=== PATIENT | male | born 1965 | race Caucasian/White ===

== ENCOUNTER 2016-10-14 21:03 | Inpatient (IN) | payer BC, OTHER ==
--- NOTE | ~2016-10-14 | DS ---
Discharge Summary [id number] [place]. [address] NAME: PREM FRANKEL : 69 STATUS : DIS IN PAT#: [id number] AGE: 51 ADM/REG DATE : 10/14/16 MR#: [id number] REPORT SERV DATE: 10/18/16 DICTATED BY: ÓSCAR KOHLER DATE: 10/17/16 REPORT STATUS : Draft TRANSCRIBED BY: LEONOR DATE: 10/17/16 ADMISSION DATE: 10/14/2016 DISCHARGE DATE: 10/17/2016 DISCHARGE DIAGNOSES: 1. Acute on chronic chest wall pain. 2. History of mediastinitis with chronic sternal wound infection. 3. History of coronary artery disease, status post CABG with redo. 4. History of systolic congestive heart failure. 5. Chronic obstructive pulmonary disease with trach. 6. Type 2 diabetes. 7. Obesity. 8. Hypertension. CONSULTANTS: Cardiothoracic Surgery, Dr. Gutierrez, and Infectious Disease, Dr. Aris Reyes. FOLLOWUP: The patient should follow up with his primary care physician in one to two weeks and to follow up with Dr. Figueroa in one to two weeks. Also, the patient should follow up with his surgeon, Dr. Lewis Camarena at [facility] in two weeks per Dr. Gutierrez' recommendation. DISCHARGE MEDICATIONS: Amlodipine 5 mg p.o. daily, aspirin 81 mg p.o. daily, benazepril 20 mg p.o. b.i.d., Tegretol 200 mg p.o. q.h.s., Coreg 25 mg p.o. b.i.d., Plavix 75 mg p.o. daily, ferrous sulfate 300 mg p.o. with meals, level three subcutaneous sliding scale insulin, Protonix 40 mg p.o. b.i.d., Ranexa 1000 mg p.o. b.i.d., Zocor 20 mg p.o. q.h.s., Klonopin 1 mg p.o. four times a day, hydralazine 25 mg p.o. t.i.d., home dose of vancomycin 2 g IV q.12 hours to stop on 10/28/2016, Levemir 90 units subcu b.i.d., Biofreeze p.r.n. HOSPITAL COURSE: Please see H and P dictated by Dr. Fitz Worrell. This is a 51 years old male with a past medical history of coronary artery disease, status post CABG with history of chronic mediastinitis, sternal infection status post CABG by Dr. Mccartney, and has seen several specialists as an outpatient for second opinion for his ongoing chronic pain and also for his chronic postop infection being on IV vancomycin, currently being treated by Infectious Disease Dr. Figueroa as an outpatient. Also, has seen specialist, Dr. Lewis Camarena, who is cardiothoracic surgeon, who currently at this time is his primary cardiothoracic surgeon, and recently had surgery, 07/2016. The patient was transferred from [facility] for second opinion from a cardiothoracic surgeon and Infectious Disease per patient and family request. The patient was seen by Dr. Gutierrez, cardiothoracic surgeon, and Infectious Disease, Dr. Aris Reyes. Dr. Gutierrez does not recommended any surgery by himself, but recommends for the patient to follow up with his now primary cardiothoracic surgeon, Dr. Lewis Camarena and also, the patient was seen by Infectious Disease specialist, who recommends for the patient to complete his IV vancomycin as previously instructed by Dr. Figueroa, for which the patient should complete his treatment on 10/28/2016. Pain management was given while in the hospital. He did have a blood culture that at the time of discharge was no growth to date. All recommendations were explained to the patient and family member at bedside and the patient was discharged back to home to continue with home health for his IV Discharge Summary [address] [address] NAME: PREM FRANKEL : 69 STATUS : DIS IN PAT#: [id number] AGE: 51 ADM/REG DATE : 10/14/16 MR#: [id number] REPORT SERV DATE: 10/18/16 DICTATED BY: ÓSCAR KOHLER DATE: 10/17/16 REPORT STATUS : Draft TRANSCRIBED BY: LEONOR DATE: 10/17/16 antibiotics and to follow up with his cardiothoracic surgeon, Dr. Camarena, and Infectious Disease, Dr. Figueroa, as an outpatient. Above specialists recommended for the patient to follow up as an outpatient and have no further recommendations at this time. BRYAN/LEONOR Óscar Kohler M.D. / [id number] CC: Ernestina Marks M.D. Larry Shears, MD
--- NOTE | ~2016-10-14 | HP ---
History And Physical [facility] [address] [place]. [address] NAME: PREM FRANKEL : 69 STATUS : ADM IN [facility]#: [id number] AGE: 51 ADM/REG DATE : 10/14/16 MR#: [id number] REPORT SERV DATE: 10/15/16 DICTATED BY: ATUL ANDERSON DATE: 10/14/16 REPORT STATUS : Draft TRANSCRIBED BY: LEONOR DATE: 10/14/16 DATE OF ADMISSION: 10/14/2016 CHIEF COMPLAINT: Continued chest wall pain, on chronic antibiotics, due to sternal infection with MRSA, transferred from [facility] for second opinion for CT surgery and infectious disease per patient and family request, as patient and family requesting [facility] transfer. Of note, prior CT surgeon, has seen Dr. Mccartney in the past. Declining repeat evaluation by Dr. Mccartney. Currently sees Dr. Leong, who is also requesting to have second opinion per patient. For additional CT surgery evaluation, sees Infectious Disease at [place] and also requesting ID second opinion. 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 Berg in [place], has [employer]. HISTORY OF PRESENT ILLNESS: The patient is a 51-year-old male with prior smoking history, but quit three years ago. Has had a complex medical history since. Has had coronary artery disease, status post CABG. Subsequently, has had sternal wall difficulties with pain and infections, currently on vancomycin IV for approximately eight weeks at this point. However, the patient reports that sternal wall pain has been constantly getting worse with more discomfort, although he does not have any erythema, fevers, or chills. Still has fair difficulty with sternal wall pain. The patient is having difficulty with swallowing, which he reports due to his trach that he had, that has been intermittent. Pain has been kind of pressure type, reproducible at times with deep wall pain. However, of concern, the patient reports that this is similar to his pain that he has had prior to his heart surgery. The patient has had decreased p.o. intake over the last few days. Currently, son has brought the patient double hamburger from outside. The patient only has eaten approximately a third of this. There are no improving symptoms of pain. Symptoms are worsened with palpation, but this essentially becomes continuous. The patient has also had mild nausea and decreased p.o. intake with shortness of breath at times. The patient usually has trach that is on. REVIEW OF SYSTEMS: Additionally, 10-point review of systems negative except that noted in HPI. PAST MEDICAL HISTORY: Coronary artery disease with ischemic cardiomyopathy, ejection fraction [address] Trujillo in the past, Dr. Mcknight, and Dr. Berg. Has had extensive cardiac nuclear stress test within the last year, which has been negative. Additionally, he has hypertension and diabetes. Reports to have signs for medical noncompliance, tracheostomy tube with COPD history, obesity. SURGICAL HISTORY: Has had CABG and redo, sternal wall infections multiple times, tracheostomy tube. SOCIAL HISTORY: Lives with son. Quit smoking three years ago. No alcohol or illicits. FAMILY HISTORY: Multiple strokes and GA. History And Physical [address] [address] NAME: PREM FRANKEL : 69 STATUS : ADM IN [facility]#: [id number] AGE: 51 ADM/REG DATE : 10/14/16 MR#: [id number] REPORT SERV DATE: 10/15/16 DICTATED BY: ATUL ANDERSON DATE: 10/14/16 REPORT STATUS : Draft TRANSCRIBED BY: LEONOR DATE: 10/14/16 ALLERGIES: PHENERGAN AND BUSPAR. HOME MEDICATIONS: Amlodipine, aspirin, benazepril, Tegretol, Coreg, Klonopin, Plavix, iron sulfate, aspart, 110 units of Levemir, Protonix, Ranexa, Zocor vancomycin, and Biofreeze. PHYSICAL EXAMINATION: VITAL SIGNS: Blood pressure 191/99, O2 saturations 93% on 2 L, temperature 98.9, pulse 97, O2 saturations . GENERAL: Obese, appears elderly than stated age. NECK: Tracheostomy. EYES: No scleral icterus. ENT: Nares patent. Tongue midline. Large tongue. CHEST: Equal chest expansion. Mildly increased AP diameter. Chest wall does have old surgical sites. No oozing or erythema, but reproducible discomfort. RESPIRATORY: Good air flow in anterior and posterior lung eli. CV: Tachycardic, but no rubs or gallops. Bilateral edema. ABDOMEN: Does have central obesity. Negative fluid wave. No gross hepatomegaly. EXTREMITIES: Moves all extremities x4. NEURO: Alert and oriented. Symmetrical rail bonder strength bilaterally. SKIN: Warm and dry. LYMPH: Does have trace bilateral pedal edema. HEME: No bleeding or bruising. PSYCH: Appropriate mood and affect. LABORATORY DATA: Labs from outside facility, WBC 6.2, H and H 11.2 and 35.6, platelets 258. BMP; sodium 136, potassium 4.1, chloride 99, bicarb 28, BUN and creatinine 8 and 0.78, glucose 451, calcium 8.7, AST and ALT 13 and 12, alkaline phosphatase 144, troponin negative. CK-MB 14, calcium 9, BNP 68. Chest x-ray, clear of acute infiltrates. CTA that was performed with contrast, no evidence of PE. Prior CABG. Continues to be soft tissue fullness and destructive changes about the mid to distal sternum, similar in appearance. Lungs appear to be clear. ASSESSMENT AND PLAN: 1. Recurrent chest wall pain. 2. Diabetes type 2. 3. Trach with chronic obstructive pulmonary disease history. 4. Coronary artery disease. 5. Obesity. 6. Hypertension. 7. Congestive heart failure. PLAN: 1. For recurrent chest wall pain with MRSA infection, the patient was told and is currently requesting second opinion from CT surgery and ID at [facility] per patient and family. Although they have seen Dr. Mccartney in the past, requesting alternative CT surgeon. Currently sees Dr. Leong at [place] and requesting additional opinion here due to continued pain, discomfort, and eight weeks of antibiotics. We will have History And Physical [address] [address] NAME: PREM FRANKEL : 69 STATUS : ADM IN PAT#: [id number] AGE: 51 ADM/REG DATE : 10/14/16 MR#: [id number] REPORT SERV DATE: 10/15/16 DICTATED BY: ATUL ANDERSON DATE: 10/14/16 REPORT STATUS : Draft TRANSCRIBED BY: MODL DATE: 10/14/16 additional consultation, CT in hand at bedside from [facility] and requested upload of CT from PACS at [facility] that was done with contrast on the day of transfer. 2. Diabetes type 2, Levemir, on extremely high doses of Levemir. We will monitor closely and sliding scale insulin. 3. Trach with COPD. DuoNebs, O2. Baseline reports not requiring oxygen, but currently in the acute setting, has required at least 2 L of O2. 4. Coronary artery disease with prior CABG, beta oksana, Plavix, aspirin, statin, ANAI inhibitor. 5. Obesity. Has been actively trying to lose weight. 6. Hypertension. Continue home medications p.r.n. 7. CHF. Does have Life Vest. Sees multiple different cardiologists. Unfortunately, the patient reports that he has been told to have multiple second opinions. Has been seeing Dr. Trujillo, Dr. Mcknight, and currently Dr. Berg, who has given the patient Life Vest. Is currently on ANAI inhibitor, beta oksana, statin, and aspirin. Not hypovolemic. Last BNP at outside facility 68. I will monitor I's and O's. DISPOSITION: Pending ID and CT Surgery opinion. We will continue IV vancomycin with pharmacy adjusting dose, as the patient is currently on this b.i.d. and try to obtain records. DDN/MODL Atul Anderson MD / [id number] CC: Carolyn Mullen M.D.
--- NOTE | ~2016-10-14 | CN ---
Consultation Report [facility] [address] [place]. [address] NAME: PREM FRANKEL : 69 STATUS : ADM IN PAT#: [id number] AGE: 51 ADM/REG DATE : 10/14/16 MR#: [id number] REPORT SERV DATE: 10/16/16 DICTATED BY: JACINTO REYES DATE: 10/16/16 REPORT STATUS : Draft TRANSCRIBED BY: MODL DATE: 10/16/16 INFECTIOUS DISEASE CONSULTATION DATE OF CONSULTATION: 10/16/2016 REASON FOR CONSULTATION: History of sternal wound infection. HISTORY OF PRESENT ILLNESS: This is a 51-year-old man with uncontrolled diabetes, obesity, coronary artery disease, congestive heart failure, and COPD. He had coronary artery bypass surgery in 04/[address] Mccartney at [facility]. He is not a great historian. At some point, he did develop a sternal wound infection and had further surgeries, which included an omental flap. I also see from the records here on [facility] that he had MRSA bacteremia in 10/2014 while at [facility]. I do not know the details of that. More recently, he has been seen at [facility] and was felt apparently to have possible persistent or recurrent sternal wound infection and on 08/30, underwent surgery at [facility] by Dr. Camarena. That operative note is reviewed and describes a free space just lateral to where the omental flap was positioned, and cultures from that area were obtained, which apparently returned negative. The patient was seen by Dr. Figueroa in ID consultation in August and he notes that cultures from an outside hospital in July had grown MRSA and Enterococcus faecalis, but details are not entirely clear. The patient left [facility] with plans for eight weeks of IV vancomycin from the time of 08/30 surgery, and the patient has an appointment to see Dr. Figueroa on 10/28. The patient presented to [facility] Emergency Department on 10/14, complaining of chest pain and was transferred here for further evaluation and apparently desired a second surgical opinion from the CT surgeon here. When I talked to the patient today, his chief complaint is persistent nausea and some episodic headache and just "a sick feeling." He thinks this very well may be due to vancomycin. He says his pain here in the hospital is well controlled. He denies any fevers, chills, or sweats. He denies any abdominal pain or diarrhea. PAST MEDICAL HISTORY: As outlined above. His diabetes has always been uncontrolled with hemoglobin A1cs in the double digits, and fingerstick glucoses here all above 300. He does have tracheostomy. Other surgeries have included bilateral total knee and total shoulder arthroplasties. ALLERGIES: HE CANNOT TOLERATE PHENERGAN OR BUSPIRONE. MEDICATIONS: At the time of transfer in addition to the vancomycin include the Norvasc, aspirin, Lotensin, Tegretol, Coreg, Klonopin, Plavix, iron sulfate, insulin, Protonix, Ranexa, Zocor. SOCIAL HISTORY: Past smoker, quit three years ago. Nondrinker. Lives with his son. FAMILY HISTORY: Notable for coronary artery disease and strokes. Consultation Report [address] [place]. [address] NAME: PREM FRANKEL : 69 STATUS : ADM IN [facility]#: [id number] AGE: 51 ADM/REG DATE : 10/14/16 MR#: [id number] REPORT SERV DATE: 10/16/16 DICTATED BY: JACINTO REYES DATE: 10/16/16 REPORT STATUS : Draft TRANSCRIBED BY: LEONOR DATE: 10/16/16 REVIEW OF SYSTEMS: As outlined above, otherwise negative. PHYSICAL EXAMINATION: VITAL SIGNS: The patient weighs 157 kg. He is afebrile. Blood pressure 155/77, pulse 78, respiratory rate 16. GENERAL: He is alert, in no acute distress. HEAD AND NECK: Notable for the tracheostomy, otherwise unremarkable. LUNGS: Clear to auscultation. CARDIAC: Regular rate and rhythm without murmur, gallop, or rub. CHEST: Shows a well-healed sternal incision. No erythema and no significant tenderness to palpation. ABDOMEN: Obese and soft. EXTREMITIES: Show a PICC line covered by dressing. SKIN: Without rash. LABORATORY STUDIES: White blood cell count 6.7, hemoglobin 11, platelets 280. Creatinine 0.92, albumin 3.2, alkaline phosphatase 145. Glucose is as mentioned. Blood cultures here are negative to date. Chest x-ray shows no acute findings. IMPRESSION: This patient has a history of sternal wound infections and surgical debridements, including an omental flap since his bypass surgery back in 2013. Most recently, he had further debridement at [facility] on 08/30 because of concern about the possibility of persistent infection. Apparently, cultures were negative and he was placed on an eight-week course of IV vancomycin, due to end on 10/28. The patient's chief complaint to me is his concern that his episodic nausea and headache might be due to the vancomycin. Certainly, this is possible, but overall I doubt it. He has certainly other factors that may be playing a role, especially with regard to his nausea and with his out-of control diabetes. The sternal area looks fine on exam today, and I do not see signs of active ongoing infection. PLAN: The patient is agreeable to continuing his vancomycin through 10/28. I will let Dr. Figueroa know of his admission. The patient will keep his followup on that date. DOM/LEONOR Jacinto Reyes M.D. / [id number] CC: Carolyn Mullen M.D. Consultation Report [address] [place]. [address] NAME: PREM FRANKEL : 69 STATUS : ADM IN [facility]#: [id number] AGE: 51 ADM/REG DATE : 10/14/16 MR#: [id number] REPORT SERV DATE: 10/16/16 DICTATED BY: JACINTO REYES DATE: 10/16/16 REPORT STATUS : Draft TRANSCRIBED BY: LEONOR DATE: 10/16/16 Ramiro Figueroa M.D.
--- NOTE | ~2016-10-14 | CN ---
Consultation Report [facility] [address] [place]. [address] NAME: PREM FRANKEL : 69 STATUS : ADM IN PAT#: [id number] AGE: 51 ADM/REG DATE : 10/14/16 MR#: [id number] REPORT SERV DATE: 10/17/16 DICTATED BY: DMITRY LLAMAS DATE: 10/16/16 REPORT STATUS : Draft TRANSCRIBED BY: MODJesi DATE: 10/16/16 CONSULTATION DATE OF CONSULTATION: 10/15/2016 REASON FOR CONSULTATION: Recurrent chest wall pain with a recent MRSA infection and mediastinitis. HISTORY OF PRESENT ILLNESS: This is a 51-year-old male who is known to our practice. He underwent open heart surgery by Dr. Holden Mccartney several years ago at [facility] and left AMA and did not want to follow up with Dr. Mccartney. He has had ongoing sternal pain and was recently admitted to [facility] with mediastinitis and underwent I and D of his wound with flap for mediastinitis by Dr. Lewis Leong. He did have positive MRSA cultures at that time. The patient was eventually discharged there and re-presented two to [facility] with complaints of chest pain. He has continued on IV antibiotics under the care of ID. He was transferred down here for evaluation of mediastinitis and continued on antibiotics, admitted by the hospitalist. CT Surgery was consulted for evaluation of his chest wall pain. He has a chronic tracheostomy that he uses intermittently. Upon admission, his blood pressure was elevated. He is maintaining O2 sats on 2 L and afebrile with normal white count. PAST MEDICAL HISTORY: Coronary artery disease with ischemic cardiomyopathy with ejection fraction around 20% the patient 30%, medical noncompliance, advanced COPD with tracheostomy, and obesity. PAST SURGICAL HISTORY: CAB in the past by Dr. Holden Mccartney at [facility]. He also had a redo sternal wall infections most recently operated on by Dr. Lewis Leong with mediastinal flap on 09/10/2016 at [facility]. He also has had a tracheostomy tube. SOCIAL HISTORY: He lives with the son. Quit smoking three years ago. Denies any history of alcohol abuse or use of illicit drugs. FAMILY HISTORY: Positive for coronary artery disease and CVAs in the past. ALLERGIES: ALLERGIC TO PHENERGAN AND BUSPAR. HOME MEDICATIONS: Amlodipine 5 mg p.o. every morning, aspirin 81 mg p.o. daily, benazepril 20 mg p.o. twice a day, Tegretol 200 mg p.o. bedtime, carvedilol 25 mg p.o. twice a day, Klonopin 1 mg p.o. four times a day, Plavix 75 mg every morning, NovoLog insulin 25 units subcu before meals, iron sulfate 325 mg p.o. with meals, NovoLog insulin sliding scale, Levemir 35 units twice a day, Protonix 40 mg p.o. twice a day, Ranexa 1000 mg p.o. twice a day, simvastatin 20 mg p.o. at bedtime, vancomycin per ID, and Biofreeze as directed. REVIEW OF SYSTEMS: A 10-point review of systems was obtained and is negative other than the HPI. Consultation Report [address] [place]. [address] NAME: PREM FRANKEL : 69 STATUS : ADM IN [facility]#: [id number] AGE: 51 ADM/REG DATE : 10/14/16 MR#: [id number] REPORT SERV DATE: 10/17/16 DICTATED BY: DMITRY LLAMAS DATE: 10/16/16 REPORT STATUS : Draft TRANSCRIBED BY: LEONOR DATE: 10/16/16 PHYSICAL EXAMINATION: VITAL SIGNS: From today, temperature 96.7, heart rate 78, blood pressure 155/77, respiratory rate 20, and O2 saturation 96% on room air. GENERAL: Obese, ill-appearing male, in no acute distress. HEENT: Head is normocephalic and atraumatic. Sclerae clear. NECK: With tracheostomy. CHEST: Clear to auscultation with diminished bases. CARDIAC: S1 and S2. No murmurs, rubs, or gallops. ABDOMEN: Obese, nontender. Active bowel sounds. EXTREMITIES: Free of cyanosis, clubbing, or edema. LABORATORY DATA: CBC on 10/15/2016 showed white blood cell count 6.7, hemoglobin 11, hematocrit 35.2, and platelets 280. Labs from today: Sodium 139, potassium 4.7, chloride 98, bicarbonate 33, BUN 10, creatinine 0.9, and glucose 337. Blood cultures at 24 hours are pending. ASSESSMENT AND PLAN: This is a 51-year-old male with a history of coronary artery disease previously operated by Dr. Holden Mccartney who did a coronary artery bypass grafting at [facility] several years ago. At that time, he left AMA and did not want to continue to follow up with Dr. Mccartney. He has had ongoing chest pain and was at [facility] in 08/2016 with what appears to be mediastinitis, underwent I and D of his sternal wound with sternal flap for mediastinitis with positive methicillin-resistant staphylococcus aureus in cultures at that time. This was done by Dr. Lewis Leong. The patient presented back to [facility] recently with chest discomfort. He is continued on IV antibiotics. The patient was transferred here for second opinion. He is evaluated by Dr. Dmitry Llamas currently. Repeat blood cultures are pending. He is to continue to be followed by ID. He was waiting for the cultures. We have reviewed medical records from [place] and requesting a CT scan from [facility], currently it is pending and Dr. Dmitry Llamas said that he does not need to undergo surgical treatment here as a recommendation that he continue to follow up with Dr. Lewis Leong. DICTATED BY: MANJEET Balderas/LEONOR Dmitry Llamas MD / [id number] CC: Carolyn Mullen M.D.
[~2016-10-14 21:03] MED LIST: *UNABLE1; ABILIFY10 PO; ADVAIR250 INH; ASA5GR PO; ASABAYER PO; ASAEC PO; ATV1 PO; CYMBALTA30 PO; CYMBALTA60 PO; FLUPHENAZINE5 MG OR; FLUPHENAZINE5 MG PO; GLUCPH PO; IBU800 PO; IMDUR60 PO; ISOSORBIDE MONO60 M1 PO; KLONO1 PO; KLOR-CON M2020 MEQ PO; KLOR-CON20 MEQ PO; L20 PO; L40 PO; LANTUS SC; LEVEMIR SC; LOP25 PO; LOTE20 PO; LYRICA50 PO; MONODOX100 MG PO; MSCONT15 PO; NITROSTAT0.4 MG SL; NORV25 PO; NOVOLOG SC; NTG150 SL; PERCOCET1 TA4; PERCOCET1 TA4 PO; PERCOCET1 TA5 PO; PLAVIX PO; PRILO PO; PROTONIX PO; PROZAC40 MG PO; ROXICODONE15 MG PO; TOPAMAX100 PO; TOPAMAX200 MG PO; TOPXL50 PO; TRAZ100 PO; VASOTEC10 PO; ZOCOR20 PO
[2016-10-14] MEDS ORDERED: VANCOMYCIN IV IV (23:17)
[2016-10-14] MEDS ORDERED: LEVEMIR SC (23:19)
[2016-10-14] MEDS ORDERED: NOVOLOG SC ×2 (23:19)
[2016-10-14] MEDS ORDERED: RANEXA1000 MG PO (23:20)
[2016-10-14] MEDS ORDERED: ASAB PO (23:20)
[2016-10-14] MEDS ORDERED: PLAVIX PO (23:21)
[2016-10-14] MEDS ORDERED: FERROUS SULF325 M1 PO (23:21)
[2016-10-14] MEDS ORDERED: ZOCOR20 PO (23:22)
[2016-10-14] MEDS ORDERED: COREG25 PO (23:23)
[2016-10-14] MEDS ORDERED: NORV5 PO (23:24)
[2016-10-14] MEDS ORDERED: TEG200 PO (23:25)
[2016-10-14] MEDS ORDERED: KLONO1 PO (23:26)
[2016-10-14] MEDS ORDERED: BIOFREEZE TOP (23:27)
[2016-10-14] MEDS ORDERED: PROTONIX PO (23:27)
[2016-10-14] MEDS ORDERED: LOTE20 PO (23:36)
[2016-10-15 01:38] LABS: BASOPHILS 0.9 %; BASOPHILS ABSOLUTE 0.06 10/3/uL (0.0-0.16); HEMATOCRIT 35.2 % (40.0-51.0); IMMATURE GRANULOCYTES 0.1 %; IMMATURE GRANULOCYTES ABSOLUTE 0.01 10/3/uL (0.0-0.11); LYMPHOCYTES 41.7 %; MANUAL DIFF NO %; MEAN CORPUS HGB CONC 31.3 g/dL (32.0-36.0); MEAN CORPUSCULAR HEMOGLOB 24.3 pg (26.0-34.0); MEAN CORPUSCULAR VOLUME 77.9 fL (80-100); MEAN PLATELET VOLUME 9.2 fL (9.2-13.0); MONOCYTES 11.9 %; NEUTROPHILS 42.4 %; NEUTROPHILS ABSOLUTE 2.84 10/3/uL (2.02-8.40); PLATELET COUNT 280 10/3/uL (150-400); RBC DISTRIBUTION WIDTH 17.3 % (12.0-16.0); RED CELL COUNT 4.52 10/6/uL (4.7-6.1); WHITE BLOOD CELLS 6.7 10/3/uL (4.5-10.5)
[2016-10-15 02:00] LABS: A/G RATIO 0.9 (0.7-1.9); ALBUMIN 3.2 G/DL (3.5-5.0); ALKALINE PHOSPHATASE 145 U/L (45-117); BUN (BLOOD UREA NITROGEN) 6 MG/DL (6-23); C-REACTIVE PROTEIN 33.4 MG/L (<8.0); CHLORIDE, SERUM 101 MMOL/L (96-112); CO2 (CARBON DIOXIDE) 32 MMOL/L (24-34); CREATININE 0.97 MG/DL (0.70-1.30); GFR AFRICAN AMERICAN 106 ML/MIN (>=60); GFR NON AFRICAN AMERICAN 91 ML/MIN (>=60); GLOBULIN 3.7 G/DL (2.5-4.1); GLUCOSE, SERUM 366 MG/DL (60-99); POTASSIUM, SERUM 4.1 MMOL/L (3.5-5.3); SGOT(AST) 9 U/L (5-40); SGPT(ALT) 19 U/L (5-65); SODIUM, SERUM 139 MMOL/L (135-148); TOTAL BILIRUBIN 0.2 MG/DL (0-1.2); TOTAL PROTEIN 6.9 G/DL (6.0-8.5); TROPONIN I 0.02 NG/ML (<0.05)
[2016-10-15 03:15] LABS: SED RATE 25 MM/HR (0-15)
[2016-10-15 04:16] LABS: PROCALCITONIN <0.05 ng/mL (<0.5)
[2016-10-15 10:09] LABS: INTERNATIONAL NORMAL RATI 1.1 UNITS (-); PROTIME (NOT ORD) 13.6 SEC (12.0-14.5)
[2016-10-15 10:25] LABS: CK-MB 8.4 NG/ML
[2016-10-15 10:27] LABS: CKMB INDEX (NOT ORD) 5.5
[2016-10-15 14:58] LABS: CK-MB 8.7 NG/ML
[2016-10-15 15:05] LABS: CKMB INDEX (NOT ORD) 5.4
[2016-10-16 06:52] LABS: CALCIUM, SERUM 8.9 MG/DL (8.5-10.4); CHLORIDE, SERUM 98 MMOL/L (96-112); CO2 (CARBON DIOXIDE) 33 MMOL/L (24-34); CREATININE 0.92 MG/DL (0.70-1.30); GFR AFRICAN AMERICAN 113 ML/MIN (>=60); GFR NON AFRICAN AMERICAN 97 ML/MIN (>=60); GLUCOSE, SERUM 337 MG/DL (60-99); SODIUM, SERUM 139 MMOL/L (135-148)
[2016-10-16 06:53] LABS: BUN (BLOOD UREA NITROGEN) 10 MG/DL (6-23); POTASSIUM, SERUM 4.7 MMOL/L (3.5-5.3)
[2016-10-17 05:59] LABS: BUN (BLOOD UREA NITROGEN) 11 MG/DL (6-23); CALCIUM, SERUM 9.3 MG/DL (8.5-10.4); CHLORIDE, SERUM 98 MMOL/L (96-112); CO2 (CARBON DIOXIDE) 31 MMOL/L (24-34); CREATININE 0.79 MG/DL (0.70-1.30); GFR AFRICAN AMERICAN 122 ML/MIN (>=60); GFR NON AFRICAN AMERICAN 105 ML/MIN (>=60); SODIUM, SERUM 139 MMOL/L (135-148)
[2016-10-17 06:00] LABS: GLUCOSE, SERUM 244 MG/DL (60-99)
[2016-10-17] MEDS ORDERED: APRES25 (17:03)
[2016-10-17] MEDS ORDERED: OXYCOD (17:04)
[2016-10-17] MEDS ORDERED: LEVEMIR (17:05)
[2016-10-17] MEDS ORDERED: VANCOCIN HCL125 MG (17:07)
== END 2016-10-17 18:35 | disposition home or self-care (01) | DRG 949 ==
LOC: 7NO 21:03
PROVIDERS: Internal Medicine; Student in an Organized Health Care Education/Training Program
DX: T81.4XXD Infection following a procedure, subsequent encounter (principal); Z68.42 Body mass index [BMI] 45.0-49.9, adult; I11.0 Hypertensive heart disease with heart failure; Z93.0 Tracheostomy status; I50.22 Chronic systolic (congestive) heart failure; J44.9 Chronic obstructive pulmonary disease, unspecified; E11.9 Type 2 diabetes mellitus without complications; B95.62 Methicillin resistant Staphylococcus aureus infection as the cause of diseases classified elsewhere; I25.10 Atherosclerotic heart disease of native coronary artery without angina pectoris; R07.89 Other chest pain; Z95.1 Presence of aortocoronary bypass graft; E66.8 Other obesity
CPT/HCPCS: 71010; 80048; 80053; 80202; 82550; 82553; 82962; 83735; 83880; 84145; 84484; 85025; 85610; 85652; 86140; 87040; 94640; A9270-GY; G0378; J1170; J3370